=== PATIENT | female | born 1945 | race Caucasian/White ===

== ENCOUNTER 2019-07-02 08:59 | Emergency (ER) | payer MEDICARE, BC ==
[~2019-07-02] VITALS: Ht 165.1 cm; Wt 53.5 kg
[~2019-07-02 08:59] MED LIST: ALLOPURINOL 10100 M1; BACTRIM DS TAB1 EACH; COREG3.125 MG; IBUPROFEN 800800 MG PO; IRON325; KEFLEX500 MG PO; LEVOXYL75 MCG PO; PREDNISONE 5 MG5 M1; SIMVASTATIN40 MG; TUMS; ZOFRAN4 MG PO
[2019-07-02] MEDS ORDERED: PHOSPHO-TRIN 2250 MG PO (09:13)
[2019-07-02] MEDS ORDERED: PROGRAF 1 MG1 MG PO (09:13)
[2019-07-02] MEDS ORDERED: FOSAMAX 70 MG T70 MG PO (09:13)
[2019-07-02] MEDS ORDERED: MYFORTIC180 MG PO (09:13)
[2019-07-02] MEDS ORDERED: ASA81BEC PO (09:13)
[2019-07-02] MEDS ORDERED: OSTERA TABLET1 EAC1 PO (09:13)
[2019-07-02 09:34] LABS: INFLUENZA A ANTIGEN Negative (Negative); INFLUENZA B ANTIGEN Negative (Negative)
[2019-07-02 10:33] LABS: ABSOLUTE LYMPHOCYTES 0.9 thou/uL (0.8-5.3); ABSOLUTE MONOCYTES 0.4 thou/uL (0.0-1.2); ABSOLUTE NEUTROPHILS 4.5 thou/uL (1.6-8.1); BASOPHILS 0.6 %; EOSINOPHILS 0.5 %; HEMATOCRIT 44.7 % (37.0-47.0); HEMOGLOBIN 15.1 gm/dL (12.0-15.0); LYMPHOCYTES 15.3 %; MCH 31.7 pg (26.0-34.0); MCHC 33.7 g/dL (28.0-37.0); MCV 94.1 fL (80.0-100.0); MONOCYTES 6.4 %; MPV 7.8 fl. (7.2-11.1); NUCLEATED RBCS 0 /100WBC; PLATELET COUNT* 178 thou/uL (150-400); POLYS 77.2 %; RBC 4.75 mil/uL (4.20-5.00); RDW-CV 13.7 % (10.5-14.5); WBC 5.8 thou/uL (4.0-11.0)
[2019-07-02 10:59] LABS: CALCIUM 8.7 mg/dL (8.5-10.1); CREATININE 0.7 mg/dL (0.6-1.3); POTASSIUM 4.2 mmol/L (3.5-5.1)
[2019-07-02 11:04] LABS: ALBUMIN 3.9 g/dL (3.4-5.0); TOTAL BILIRUBIN 0.4 mg/dL (<0.1-1.0); TOTAL PROTEIN 7.5 g/dL (6.4-8.2)
[2019-07-02] MEDS ORDERED: KEFLEX500 M1 PO ×2 (11:18→11:19)
[2019-07-02 11:27] VITALS: BP 128/60
== END 2019-07-02 11:28 | disposition home or self-care (01) ==
LOC: M.ERS 08:59
PROVIDERS: Emergency Medicine
DX: J40 Bronchitis, not specified as acute or chronic (principal); E03.9 Hypothyroidism, unspecified; E78.00 Pure hypercholesterolemia, unspecified; M81.0 Age-related osteoporosis without current pathological fracture; Z90.89 Acquired absence of other organs; Z94.0 Kidney transplant status; Z88.0 Allergy status to penicillin